=== PATIENT | female | born 1930 | race African-American/Black ===

== ENCOUNTER 2018-02-04 13:45 | Inpatient (IN) ==
[2018-02-04 14:18] LABS: Basophils % 0.4 % (0.0-0.8); Eosinophils # 0.2 10*3/uL (0.0-0.87); Eosinophils % 2.6 % (0.00-10.9); Hemoglobin 12.8 GM/DL (12.0-16.0); Immature Granulocytes % 0.4 %; Immature Granulocytes Absolute 0.03 #; Lymphocytes % 12.2 % (21.3-54.2); Mean Corpuscular Hemoglobin 29 PG (27-34); Mean Corpuscular Volume 91.7 FL (87-102); Monocytes # 0.5 10*3/uL (0.11-0.8); Monocytes % 6.1 % (1.7-12.7); Neutrophils # 6.7 10*3/uL (1.4-7.4); Neutrophils % 78.3 % (38.7-73.9); Platelet Count 147 T/CUMM (130-400); Red Blood Count 4.36 MC/CUMM (3.8-5.5); Red Cell Distribution Width 13.8 % (9.3-17.3); White Blood Count 8.5 T/CUMM (4-12)
[2018-02-04 14:27] LABS: INR 0.9
[2018-02-04 14:39] LABS: Alanine Aminotransferase 17 U/L (13-56); Albumin 3.9 G/DL (3.4-5.0); Alkaline Phosphatase 102 U/L (45-117); Aspartate Amino Transferase 18 U/L (0-37); Blood Urea Nitrogen 16 MG/DL (7-18); Calcium 9.6 MG/DL (8.5-10.1); Glucose 126 MG/DL (74-106); Potassium 3.7 MMOL/L (3.5-5.1); Sodium 143 MMOL/L (136-145); Total Protein 7.6 G/DL (6.4-8.3)
[2018-02-04 14:42] LABS: Troponin I 0.266 NG/ML (0.00-0.045)
[2018-02-04] MEDS ORDERED: ASPIRIN 325 MG TABLET PO STA (14:47)
[2018-02-04 15:54] LABS: Apearance,Urine Slightly Hazy (Clear); Bilirubin,Urine Negative (Negative); Blood, Urine Negative (Negative); Glucose,Urine (UA) Negative (Negative); Ketones,Urine 20 mg/dL (Negative); Mucus,Urine Occasional /LPF (Occasional); Nitrite,Urine Negative (Negative); Protein,Urine 100 MG/DL; RBC,Urine 1 /HPF (0-4); Squamous Epithelial Cell,Urine Occasional /HPF (0-10); Urine Color Yellow (Yellow); Urine Specific Gravity 1.012 (1.001-1.035); Urine Urobilinogen < 2.0 EU/DL (0.2-1.0); WBC,Urine 6 /HPF (0-6)
[2018-02-04] MEDS ORDERED: ENOXAPARIN 60 MG/0.6 ML SYRINGE SUBCUT ONE (16:11)
[2018-02-04] MEDS ORDERED: NITROGLYCERIN SL 0.4 MG TABLET SL PRN (16:11)
[2018-02-04] MEDS ORDERED: NITROGLYCERIN 2% OINT 1 INCH/GM PACK TOP STA (16:11)
[2018-02-04] MEDS ORDERED: ONDANSETRON 4 MG/2 ML VIAL IV PRN (16:20)
[2018-02-04] MEDS ORDERED: DEXTROSE 50% 25 GM/50 ML VIAL IV PRN (16:20)
[2018-02-04] MEDS ORDERED: GLUCAGON 1 MG VIAL IM PRN (16:20)
[2018-02-04] MEDS ORDERED: MAGNESIUM SULF RIDER 2 GM in PREMIX 1 EACH IV PRN (17:30)
[2018-02-04] MEDS: INSULIN REGULAR 100 UNIT/ML SUBCUT SCH ×2 (19:03→21:42)
[2018-02-04] MEDS: NITROGLYCERIN 2% OINT 1 INCH/GM PACK TOP SCH (19:11)
[2018-02-04] MEDS: SODIUM CHLORIDE 0.45% 1,000 ML IV SCH (19:11)
[2018-02-04] MEDS: glipiZIDE 10 MG TABLET PO SCH (21:41)
[2018-02-04] MEDS: MECLIZINE 25 MG TABLET PO SCH (21:41)
[2018-02-04] MEDS: MULTIVITAMIN (CENTRUM) TABLET PO SCH (21:41)
[2018-02-04] MEDS: LISINOPRIL 20 MG TABLET PO SCH (21:41)
[2018-02-04] MEDS: CHOLECALCIFEROL 1,000 UNIT TABLET PO SCH (21:41)
[2018-02-05] MEDS: NITROGLYCERIN 2% OINT 1 INCH/GM PACK TOP SCH ×4 (00:43→18:10)
[2018-02-05] MEDS ORDERED: ENOXAPARIN 60 MG/0.6 ML SYRINGE SUBCUT SCH (04:00)
[2018-02-05] MEDS: SODIUM CHLORIDE 0.45% 1,000 ML IV SCH ×2 (04:53→15:17)
[2018-02-05 05:21] LABS: Basophils % 0.4 % (0.0-0.8); Eosinophils # 0.1 10*3/uL (0.0-0.87); Eosinophils % 1.9 % (0.00-10.9); Hematocrit 33.4 VOL% (35.7-47.0); Hemoglobin 10.7 GM/DL (12.0-16.0); Immature Granulocytes % 0.4 %; Immature Granulocytes Absolute 0.03 #; Lymphocytes # 0.9 10*3/uL (1.4-4.0); Lymphocytes % 13.5 % (21.3-54.2); Mean Corpuscular Hemoglobin 30 PG (27-34); Mean Platelet Volume 13.7 FL (9.6-12.0); Monocytes # 0.5 10*3/uL (0.11-0.8); Monocytes % 6.9 % (1.7-12.7); Neutrophils # 5.3 10*3/uL (1.4-7.4); Neutrophils % 76.9 % (38.7-73.9); Platelet Count 120 T/CUMM (130-400); Red Blood Count 3.63 MC/CUMM (3.8-5.5); Red Cell Distribution Width 13.6 % (9.3-17.3); White Blood Count 6.8 T/CUMM (4-12)
[2018-02-05 05:54] LABS: Calcium 8.7 MG/DL (8.5-10.1); Potassium 3.5 MMOL/L (3.5-5.1); Risk Ratio 3.55; Thyroid Stimulating Hormone 2.08 uIU/ml (0.358-3.74); VLDL CHOLESTEROL 14.6 MG/DL
[2018-02-05] MEDS: POTASSIUM CHLORIDE 20 MEQ TABLET PO PRN (06:09)
[2018-02-05] MEDS ORDERED: ENOXAPARIN 40 MG/0.4 ML SYRINGE SUBCUT SCH ×2 (08:00→21:00)
[2018-02-05] MEDS ORDERED: diphenhydrAMINE CAP 25 MG CAPSULE PO PRN (08:37)
[2018-02-05] MEDS: INSULIN REGULAR 100 UNIT/ML SUBCUT SCH ×4 (09:01→21:29)
[2018-02-05] MEDS: amLODIPine 5 MG TABLET PO SCH (09:02)
[2018-02-05] MEDS: MECLIZINE 25 MG TABLET PO SCH ×2 (09:02→21:27)
[2018-02-05] MEDS: PANTOPRAZOLE 40 MG TABLET PO SCH (09:02)
[2018-02-05] MEDS: sitaGLIPtin 100 MG TABLET PO SCH (09:02)
[2018-02-05] MEDS: glipiZIDE 10 MG TABLET PO SCH ×2 (09:02→21:27)
[2018-02-05] MEDS: ASPIRIN EC 325 MG TABLET PO SCH (09:02)
[2018-02-05] MEDS ORDERED: ALBUTEROL/IPRATROPIUM 3 ML NEB RESP TX ONE (10:45)
[2018-02-05] MEDS ORDERED: cefTRIAXone 1,000 MG in SODIUM CHLORIDE 0.9% 100 ML IV SCH (11:00)
[2018-02-05] MEDS: ALBUTEROL/IPRATROPIUM 3 ML NEB RESP TX PRN (20:15)
[2018-02-05] MEDS: LISINOPRIL 20 MG TABLET PO SCH ×2 (21:26→21:31)
[2018-02-05] MEDS: CHOLECALCIFEROL 1,000 UNIT TABLET PO SCH (21:26)
[2018-02-05] MEDS: MULTIVITAMIN (CENTRUM) TABLET PO SCH (21:27)
[2018-02-05] MEDS ORDERED: FUROSEMIDE 40 MG/4 ML VIAL IV ONE (21:38)
[2018-02-06] MEDS: NITROGLYCERIN 2% OINT 1 INCH/GM PACK TOP SCH ×4 (04:34→18:28)
[2018-02-06] MEDS ORDERED: FUROSEMIDE 40 MG/4 ML VIAL IV ONE (05:39)
[2018-02-06] MEDS: SODIUM CHLORIDE 0.45% 1,000 ML IV SCH (05:42)
[2018-02-06] MEDS: ALBUTEROL/IPRATROPIUM 3 ML NEB RESP TX PRN (05:45)
[2018-02-06 07:12] LABS: Basophils % 0.1 % (0.0-0.8); Eosinophils % 0.1 % (0.00-10.9); Hematocrit 33.3 VOL% (35.7-47.0); Hemoglobin 10.7 GM/DL (12.0-16.0); Immature Granulocytes % 0.7 %; Immature Granulocytes Absolute 0.05 #; Lymphocytes # 0.7 10*3/uL (1.4-4.0); Lymphocytes % 9.2 % (21.3-54.2); Mean Corpuscular HGB Conc 32.1 GM/DL (32-36); Mean Corpuscular Hemoglobin 29 PG (27-34); Mean Corpuscular Volume 91.5 FL (87-102); Monocytes # 0.5 10*3/uL (0.11-0.8); Monocytes % 7.3 % (1.7-12.7); Neutrophils # 6.1 10*3/uL (1.4-7.4); Neutrophils % 82.6 % (38.7-73.9); Platelet Count 125 T/CUMM (130-400); Red Blood Count 3.64 MC/CUMM (3.8-5.5); Red Cell Distribution Width 13.6 % (9.3-17.3); White Blood Count 7.4 T/CUMM (4-12)
[2018-02-06] MEDS: glipiZIDE 10 MG TABLET PO SCH ×2 (08:19→21:45)
[2018-02-06] MEDS: sitaGLIPtin 100 MG TABLET PO SCH (08:19)
[2018-02-06] MEDS: INSULIN REGULAR 100 UNIT/ML SUBCUT SCH ×4 (08:19→22:19)
[2018-02-06] MEDS: MECLIZINE 25 MG TABLET PO SCH ×2 (08:19→21:46)
[2018-02-06] MEDS: amLODIPine 5 MG TABLET PO SCH (08:19)
[2018-02-06] MEDS: ASPIRIN EC 325 MG TABLET PO SCH (08:19)
[2018-02-06] MEDS: PANTOPRAZOLE 40 MG TABLET PO SCH (08:19)
[2018-02-06] MEDS ORDERED: BISACODYL 10 MG SUPP RECTAL ONE (15:43)
[2018-02-06] MEDS: ACETAMINOPHEN 325 MG TABLET PO PRN (18:30)
[2018-02-06] MEDS ORDERED: FUROSEMIDE 40 MG/4 ML VIAL IV SCH (19:00)
[2018-02-06] MEDS: LISINOPRIL 20 MG TABLET PO SCH (21:45)
[2018-02-06] MEDS: CHOLECALCIFEROL 1,000 UNIT TABLET PO SCH (21:45)
[2018-02-06] MEDS: MULTIVITAMIN (CENTRUM) TABLET PO SCH (21:45)
[2018-02-06] MEDS: FUROSEMIDE 40 MG/4 ML VIAL IV SCH (22:19)
[2018-02-07] MEDS: NITROGLYCERIN 2% OINT 1 INCH/GM PACK TOP SCH ×4 (01:44→18:03)
[2018-02-07 05:08] LABS: Basophils % 0.1 % (0.0-0.8); Eosinophils % 0.3 % (0.00-10.9); Hematocrit 30.2 VOL% (35.7-47.0); Hemoglobin 9.6 GM/DL (12.0-16.0); Immature Granulocytes % 0.7 %; Immature Granulocytes Absolute 0.05 #; Lymphocytes # 0.6 10*3/uL (1.4-4.0); Lymphocytes % 8.2 % (21.3-54.2); Mean Corpuscular HGB Conc 31.8 GM/DL (32-36); Mean Corpuscular Hemoglobin 29 PG (27-34); Mean Corpuscular Volume 90.4 FL (87-102); Mean Platelet Volume 13.1 FL (9.6-12.0); Monocytes # 0.7 10*3/uL (0.11-0.8); Monocytes % 9.3 % (1.7-12.7); Neutrophils # 6.1 10*3/uL (1.4-7.4); Neutrophils % 81.4 % (38.7-73.9); Platelet Count 124 T/CUMM (130-400); Red Blood Count 3.34 MC/CUMM (3.8-5.5); Red Cell Distribution Width 13.5 % (9.3-17.3); White Blood Count 7.4 T/CUMM (4-12)
[2018-02-07 05:34] LABS: Calcium 8.5 MG/DL (8.5-10.1); Osmolality,Calculated 270.8 MOS/KG (273-304); Potassium 3.5 MMOL/L (3.5-5.1)
[2018-02-07] MEDS: sitaGLIPtin 100 MG TABLET PO SCH (09:11)
[2018-02-07] MEDS: MECLIZINE 25 MG TABLET PO SCH ×2 (09:11→20:57)
[2018-02-07] MEDS: glipiZIDE 10 MG TABLET PO SCH ×2 (09:11→20:56)
[2018-02-07] MEDS: ASPIRIN EC 325 MG TABLET PO SCH (09:11)
[2018-02-07] MEDS: PANTOPRAZOLE 40 MG TABLET PO SCH (09:11)
[2018-02-07] MEDS: FUROSEMIDE 40 MG/4 ML VIAL IV SCH ×2 (09:12→16:41)
[2018-02-07] MEDS: INSULIN REGULAR 100 UNIT/ML SUBCUT SCH ×4 (09:12→23:49)
[2018-02-07] MEDS: POLYETHYLENE GLYCOL POWDER 17 GM PACK PO SCH (09:12)
[2018-02-07] MEDS: amLODIPine 5 MG TABLET PO SCH (09:12)
[2018-02-07] MEDS: ALBUTEROL/IPRATROPIUM 3 ML NEB RESP TX PRN (14:00)
[2018-02-07] MEDS: ACETAMINOPHEN 325 MG TABLET PO PRN (16:40)
[2018-02-07] MEDS: cefTRIAXone 1,000 MG in SYRINGE 1 EACH IV SCH (18:35)
[2018-02-07] MEDS ORDERED: AZITHROMYCIN INJ 500 MG in SODIUM CHLORIDE 0.9% 250 ML IV SCH (20:00)
[2018-02-07] MEDS: MULTIVITAMIN (CENTRUM) TABLET PO SCH (20:55)
[2018-02-07] MEDS: LISINOPRIL 20 MG TABLET PO SCH (20:56)
[2018-02-07] MEDS: CHOLECALCIFEROL 1,000 UNIT TABLET PO SCH (20:57)
[2018-02-08] MEDS: NITROGLYCERIN 2% OINT 1 INCH/GM PACK TOP SCH ×4 (01:16→17:13)
[2018-02-08 05:22] LABS: Calcium 8.7 MG/DL (8.5-10.1); Osmolality,Calculated 283.8 MOS/KG (273-304); Potassium 3.8 MMOL/L (3.5-5.1)
[2018-02-08 05:33] LABS: Basophils % 0.1 % (0.0-0.8); Eosinophils % 0.1 % (0.00-10.9); Hematocrit 29.7 VOL% (35.7-47.0); Hemoglobin 9.8 GM/DL (12.0-16.0); Immature Granulocytes % 0.8 %; Immature Granulocytes Absolute 0.07 #; Lymphocytes # 0.6 10*3/uL (1.4-4.0); Lymphocytes % 6.9 % (21.3-54.2); Mean Corpuscular Hemoglobin 30 PG (27-34); Mean Platelet Volume 13.3 FL (9.6-12.0); Monocytes # 0.6 10*3/uL (0.11-0.8); Monocytes % 6.5 % (1.7-12.7); Neutrophils # 7.7 10*3/uL (1.4-7.4); Neutrophils % 85.6 % (38.7-73.9); Platelet Count 145 T/CUMM (130-400); Red Cell Distribution Width 13.6 % (9.3-17.3)
[2018-02-08] MEDS: ASPIRIN EC 325 MG TABLET PO SCH (09:14)
[2018-02-08] MEDS: PANTOPRAZOLE 40 MG TABLET PO SCH (09:14)
[2018-02-08] MEDS: FUROSEMIDE 40 MG/4 ML VIAL IV SCH ×2 (09:14→17:12)
[2018-02-08] MEDS: sitaGLIPtin 100 MG TABLET PO SCH (09:14)
[2018-02-08] MEDS: MECLIZINE 25 MG TABLET PO SCH ×2 (09:14→22:07)
[2018-02-08] MEDS: amLODIPine 5 MG TABLET PO SCH (09:14)
[2018-02-08] MEDS: glipiZIDE 10 MG TABLET PO SCH ×2 (09:14→22:07)
[2018-02-08] MEDS: INSULIN REGULAR 100 UNIT/ML SUBCUT SCH ×4 (09:18→22:08)
[2018-02-08] MEDS: ACETAMINOPHEN 325 MG TABLET PO PRN (09:22)
[2018-02-08] MEDS: POLYETHYLENE GLYCOL POWDER 17 GM PACK PO SCH (09:23)
[2018-02-08] MEDS: cefTRIAXone 1,000 MG in SYRINGE 1 EACH IV SCH (17:12)
[2018-02-08] MEDS: DOXYCYCLINE HYCLATE 100 MG CAPSULE PO SCH (22:07)
[2018-02-08] MEDS: CHOLECALCIFEROL 1,000 UNIT TABLET PO SCH (22:07)
[2018-02-08] MEDS: MULTIVITAMIN (CENTRUM) TABLET PO SCH (22:07)
[2018-02-08] MEDS: LISINOPRIL 20 MG TABLET PO SCH (22:08)
[2018-02-09 06:09] LABS: Basophils % 0.3 % (0.0-0.8); Eosinophils # 0.1 10*3/uL (0.0-0.87); Hematocrit 34.9 VOL% (35.7-47.0); Hemoglobin 10.4 GM/DL (12.0-16.0); Immature Granulocytes % 0.5 %; Immature Granulocytes Absolute 0.04 #; Lymphocytes # 0.7 10*3/uL (1.4-4.0); Lymphocytes % 8.6 % (21.3-54.2); Mean Corpuscular HGB Conc 29.8 GM/DL (32-36); Mean Corpuscular Hemoglobin 28 PG (27-34); Mean Corpuscular Volume 95.1 FL (87-102); Mean Platelet Volume 13.3 FL (9.6-12.0); Monocytes # 0.5 10*3/uL (0.11-0.8); Monocytes % 6.8 % (1.7-12.7); Neutrophils # 6.3 10*3/uL (1.4-7.4); Neutrophils % 82.8 % (38.7-73.9); Red Blood Count 3.67 MC/CUMM (3.8-5.5); Red Cell Distribution Width 13.9 % (9.3-17.3); White Blood Count 7.7 T/CUMM (4-12)
[2018-02-09 06:11] LABS: Platelet Count 140 T/CUMM (130-400)
[2018-02-09] MEDS: NITROGLYCERIN 2% OINT 1 INCH/GM PACK TOP SCH ×4 (06:23→18:21)
[2018-02-09 06:38] LABS: Calcium 9.2 MG/DL (8.5-10.1); Potassium 3.9 MMOL/L (3.5-5.1)
[2018-02-09 07:10] LABS: Anisocytosis 1+; Macrocytosis Slight; Platelet Estimate Adequate
[2018-02-09] MEDS: ALBUTEROL/IPRATROPIUM 3 ML NEB RESP TX PRN ×2 (08:07→18:40)
[2018-02-09] MEDS: INSULIN REGULAR 100 UNIT/ML SUBCUT SCH ×4 (09:32→21:48)
[2018-02-09] MEDS: amLODIPine 5 MG TABLET PO SCH (09:33)
[2018-02-09] MEDS: DOXYCYCLINE HYCLATE 100 MG CAPSULE PO SCH ×2 (09:33→21:45)
[2018-02-09] MEDS: PANTOPRAZOLE 40 MG TABLET PO SCH (09:33)
[2018-02-09] MEDS: MECLIZINE 25 MG TABLET PO SCH ×2 (09:33→21:45)
[2018-02-09] MEDS: sitaGLIPtin 100 MG TABLET PO SCH (09:33)
[2018-02-09] MEDS: glipiZIDE 10 MG TABLET PO SCH ×2 (09:33→21:45)
[2018-02-09] MEDS: ASPIRIN EC 325 MG TABLET PO SCH (09:33)
[2018-02-09] MEDS: FUROSEMIDE 40 MG/4 ML VIAL IV SCH (09:33)
[2018-02-09] MEDS: cefTRIAXone 1,000 MG in SYRINGE 1 EACH IV SCH (18:16)
[2018-02-09] MEDS: LISINOPRIL 20 MG TABLET PO SCH (21:45)
[2018-02-09] MEDS: MULTIVITAMIN (CENTRUM) TABLET PO SCH (21:45)
[2018-02-09] MEDS: CHOLECALCIFEROL 1,000 UNIT TABLET PO SCH (21:45)
[2018-02-10] MEDS: NITROGLYCERIN 2% OINT 1 INCH/GM PACK TOP SCH ×5 (01:22→23:48)
[2018-02-10] MEDS: INSULIN REGULAR 100 UNIT/ML SUBCUT SCH ×4 (08:44→21:22)
[2018-02-10] MEDS ORDERED: FUROSEMIDE 40 MG/4 ML VIAL IV SCH (09:00)
[2018-02-10] MEDS: MECLIZINE 25 MG TABLET PO SCH ×2 (09:46→21:21)
[2018-02-10] MEDS: PANTOPRAZOLE 40 MG TABLET PO SCH (09:46)
[2018-02-10] MEDS: amLODIPine 5 MG TABLET PO SCH (09:46)
[2018-02-10] MEDS: ASPIRIN EC 325 MG TABLET PO SCH (09:46)
[2018-02-10] MEDS: glipiZIDE 10 MG TABLET PO SCH ×2 (09:47→21:21)
[2018-02-10] MEDS: DOXYCYCLINE HYCLATE 100 MG CAPSULE PO SCH ×2 (09:47→21:21)
[2018-02-10] MEDS: sitaGLIPtin 100 MG TABLET PO SCH (09:47)
[2018-02-10] MEDS: POTASSIUM CHLORIDE 20 MEQ TABLET PO PRN (09:48)
[2018-02-10] MEDS: ALBUTEROL/IPRATROPIUM 3 ML NEB RESP TX PRN (15:26)
[2018-02-10] MEDS: cefTRIAXone 1,000 MG in SYRINGE 1 EACH IV SCH (18:38)
[2018-02-10] MEDS: CHOLECALCIFEROL 1,000 UNIT TABLET PO SCH (21:22)
[2018-02-10] MEDS: MULTIVITAMIN (CENTRUM) TABLET PO SCH (21:22)
[2018-02-10] MEDS: LISINOPRIL 20 MG TABLET PO SCH (21:23)
[2018-02-11] MEDS: ALBUTEROL/IPRATROPIUM 3 ML NEB RESP TX PRN (03:18)
[2018-02-11 05:54] LABS: Calcium 8.5 MG/DL (8.5-10.1); Osmolality,Calculated 281.1 MOS/KG (273-304); Potassium 4.6 MMOL/L (3.5-5.1)
[2018-02-11] MEDS: NITROGLYCERIN 2% OINT 1 INCH/GM PACK TOP SCH ×4 (06:50→17:10)
[2018-02-11] MEDS ORDERED: MORPHINE 4 MG/1 ML VIAL IV ONE (07:28)
[2018-02-11] MEDS: ASPIRIN EC 325 MG TABLET PO SCH ×2 (07:44→09:46)
[2018-02-11] MEDS ORDERED: LORazepam 2 MG/1 ML VIAL IM ONE (08:09)
[2018-02-11] MEDS ORDERED: LORazepam 2 MG/1 ML VIAL ONE (08:12)
[2018-02-11] MEDS: INSULIN REGULAR 100 UNIT/ML SUBCUT SCH ×5 (08:45→21:23)
[2018-02-11] MEDS ORDERED: PROPOFOL 1,000 MG/100 ML BOTTLE IV ONE (08:47)
[2018-02-11] MEDS ORDERED: EPINEPHrine 1 MG/10 ML SYRINGE ONE (08:58)
[2018-02-11] MEDS ORDERED: FUROSEMIDE 40 MG TABLET PO SCH (09:00)
[2018-02-11] MEDS: PROPOFOL 1,000 MG/100 ML BOTTLE IV SCH ×3 (09:12→20:34)
[2018-02-11 09:25] LABS: ABG Base Excess -10.5 MMOL/L (-2.5-2.5); ABG Oxygen Saturation 99.1 % (95-100); ABG PCO2 32.9 MM HG (35-48); ABG PH 7.277 (7.35-7.45); ABG TCO2 14.3 MMOL/L (23-27); Allen Test Positive
[2018-02-11] MEDS: glipiZIDE 10 MG TABLET PO SCH ×3 (09:46→21:23)
[2018-02-11] MEDS: MECLIZINE 25 MG TABLET PO SCH (09:46)
[2018-02-11] MEDS: sitaGLIPtin 100 MG TABLET PO SCH (09:46)
[2018-02-11] MEDS: DOXYCYCLINE HYCLATE 100 MG CAPSULE PO SCH (09:48)
[2018-02-11] MEDS: methylPREDNISolone SOD SUC 125 MG/2 ML VIAL IV SCH ×3 (09:48→21:22)
[2018-02-11] MEDS: PANTOPRAZOLE 40 MG TABLET PO SCH (09:48)
[2018-02-11] MEDS: amLODIPine 5 MG TABLET PO SCH (09:48)
[2018-02-11] MEDS ORDERED: ALBUTEROL 2.5 MG/3 ML NEB RESP TX PRN (09:52)
[2018-02-11] MEDS ORDERED: PROPOFOL 1,000 MG/100 ML BOTTLE IV SCH (10:00)
[2018-02-11 10:06] LABS: INR 1.1; PT Patient Result 12.2 SECS
[2018-02-11 10:18] LABS: Basophils % 0.2 % (0.0-0.8); Eosinophils # 0.1 10*3/uL (0.0-0.87); Eosinophils % 0.6 % (0.00-10.9); Hematocrit 27.5 VOL% (35.7-47.0); Hemoglobin 8.8 GM/DL (12.0-16.0); Immature Granulocytes % 1.3 %; Immature Granulocytes Absolute 0.18 #; Lymphocytes # 0.6 10*3/uL (1.4-4.0); Lymphocytes % 4.4 % (21.3-54.2); Mean Corpuscular Hemoglobin 30 PG (27-34); Mean Corpuscular Volume 92.3 FL (87-102); Monocytes # 0.6 10*3/uL (0.11-0.8); Monocytes % 4.4 % (1.7-12.7); Neutrophils # 11.9 10*3/uL (1.4-7.4); Neutrophils % 89.1 % (38.7-73.9); Platelet Count 220 T/CUMM (130-400); Red Blood Count 2.98 MC/CUMM (3.8-5.5); Red Cell Distribution Width 14.1 % (9.3-17.3); White Blood Count 13.4 T/CUMM (4-12)
[2018-02-11 10:37] LABS: Alanine Aminotransferase 406 U/L (13-56); Albumin 2.7 G/DL (3.4-5.0); Alkaline Phosphatase 132 U/L (45-117); Aspartate Amino Transferase 660 U/L (0-37); Blood Urea Nitrogen 43 MG/DL (7-18); Calcium 8.6 MG/DL (8.5-10.1); Glucose 296 MG/DL (74-106); Osmolality,Calculated 289.2 MOS/KG (273-304); Potassium 4.6 MMOL/L (3.5-5.1); Sodium 134 MMOL/L (136-145); Total Protein 5.7 G/DL (6.4-8.3)
[2018-02-11] MEDS: PANTOPRAZOLE 40 MG VIAL IV SCH (10:52)
[2018-02-11] MEDS: MEROPENEM 500 MG in SODIUM CHLORIDE 0.9% 100 ML IV SCH (10:52)
[2018-02-11 10:57] LABS: Lactic Acid 3.6 MMOL/L (0.4-2.0)
[2018-02-11] MEDS ORDERED: SODIUM BICARBONATE 50 MEQ/50 ML SYRINGE IV ONE (11:03)
[2018-02-11] MEDS ORDERED: SODIUM CHLORIDE 0.9% 2,100 ML IV ONE (11:08)
[2018-02-11] MEDS ORDERED: SODIUM BICARB INJ 150 MEQ in DEXTROSE 5% 850 ML IV SCH (11:30)
[2018-02-11] MEDS: ALBUTEROL/IPRATROPIUM 3 ML NEB RESP TX SCH ×2 (12:22→19:33)
[2018-02-11] MEDS: PIPERACILLIN/TAZOBACTAM 3,375 MG in SODIUM CHLORIDE 0.9% 100 ML IV SCH (14:40)
[2018-02-11 15:05] LABS: Band Neutrophils 1 % (0-10); Lymphocytes 5 % (20-55); Macrocytosis Slight; Segmented Neutrophils 91 % (50-85); Total Cells Counted 100
[2018-02-11 15:06] LABS: Hypochromasia Slight; Platelet Estimate Adequate
[2018-02-11] MEDS: INSULIN GLARGINE 100 UNIT/ML SUBCUT SCH (17:19)
[2018-02-11] MEDS: SODIUM BICARB INJ 150 MEQ in STERILE WATER INJ 850 ML IV SCH (18:37)
[2018-02-11] MEDS: CHOLECALCIFEROL 1,000 UNIT TABLET PO SCH (21:23)
[2018-02-11] MEDS: MULTIVITAMIN (CENTRUM) TABLET PO SCH (21:23)
[2018-02-12] MEDS: INSULIN REGULAR 100 UNIT/ML SUBCUT SCH ×7 (00:23→23:16)
[2018-02-12] MEDS: MEROPENEM 500 MG in SODIUM CHLORIDE 0.9% 100 ML IV SCH ×3 (00:23→22:42)
[2018-02-12] MEDS: NITROGLYCERIN 2% OINT 1 INCH/GM PACK TOP SCH ×5 (00:24→23:16)
[2018-02-12] MEDS: ALBUTEROL/IPRATROPIUM 3 ML NEB RESP TX SCH ×4 (02:04→19:25)
[2018-02-12] MEDS: PIPERACILLIN/TAZOBACTAM 3,375 MG in SODIUM CHLORIDE 0.9% 100 ML IV SCH ×2 (02:21→14:24)
[2018-02-12] MEDS: methylPREDNISolone SOD SUC 125 MG/2 ML VIAL IV SCH ×4 (04:25→21:05)
[2018-02-12] MEDS: SODIUM BICARB INJ 150 MEQ in STERILE WATER INJ 850 ML IV SCH (04:26)
[2018-02-12 04:36] LABS: Allen Test Positive; Pt O2 Delivery Device Ventilator
[2018-02-12 04:37] LABS: ABG HCO3 24.7 MMOL/L (20-26); ABG Oxygen Saturation 98.7 % (95-100); ABG PCO2 23.9 MM HG (35-48); ABG PO2 223.8 MM HG (80-95); ABG TCO2 25.4 MMOL/L (23-27)
[2018-02-12 04:39] LABS: ABG PH 7.632 (7.35-7.45)
[2018-02-12 04:39] LABS: Hemoglobin 7.9 GM/DL (12.0-16.0); Immature Granulocytes % 0.5 %; Immature Granulocytes Absolute 0.05 #; Lymphocytes # 0.3 10*3/uL (1.4-4.0); Lymphocytes % 3.4 % (21.3-54.2); Mean Corpuscular HGB Conc 32.9 GM/DL (32-36); Mean Corpuscular Hemoglobin 29 PG (27-34); Mean Corpuscular Volume 88.6 FL (87-102); Mean Platelet Volume 11.9 FL (9.6-12.0); Monocytes # 0.4 10*3/uL (0.11-0.8); Monocytes % 3.9 % (1.7-12.7); Neutrophils % 92.2 % (38.7-73.9); Platelet Count 193 T/CUMM (130-400); Red Blood Count 2.71 MC/CUMM (3.8-5.5); Red Cell Distribution Width 13.7 % (9.3-17.3); White Blood Count 9.8 T/CUMM (4-12)
[2018-02-12] MEDS: PROPOFOL 1,000 MG/100 ML BOTTLE IV SCH ×3 (05:13→16:56)
[2018-02-12 05:43] LABS: Albumin 2.2 G/DL (3.4-5.0); Bilirubin,Total 0.4 MG/DL (0.2-1.0); Calcium 8.2 MG/DL (8.5-10.1); Osmolality,Calculated 283.7 MOS/KG (273-304); Potassium 3.6 MMOL/L (3.5-5.1); Total Protein 5.2 G/DL (6.4-8.3)
[2018-02-12 06:49] LABS: Anisocytosis 1+; Band Neutrophils 5 % (0-10); Hypochromasia 1+; Lymphocytes 1 % (20-55); Segmented Neutrophils 92 % (50-85); Total Cells Counted 100
[2018-02-12 06:50] LABS: Acanthocytes Few; Platelet Estimate Adequate; Target Cells Few
[2018-02-12] MEDS ORDERED: FUROSEMIDE 40 MG/4 ML VIAL IV ONE (06:53)
[2018-02-12] MEDS ORDERED: DEXTROSE 50% 25 GM/50 ML SYRINGE IV ONE (07:58)
[2018-02-12] MEDS: ASPIRIN EC 325 MG TABLET PO SCH (08:02)
[2018-02-12] MEDS: amLODIPine 5 MG TABLET PO SCH (08:02)
[2018-02-12] MEDS: glipiZIDE 10 MG TABLET PO SCH ×2 (08:03→21:05)
[2018-02-12] MEDS: INSULIN GLARGINE 100 UNIT/ML SUBCUT SCH (08:03)
[2018-02-12] MEDS ORDERED: INSULIN GLARGINE 100 UNIT/ML SUBCUT SCH (09:00)
[2018-02-12] MEDS: PANTOPRAZOLE 40 MG VIAL IV SCH (10:15)
[2018-02-12] MEDS: MULTIVITAMIN (CENTRUM) TABLET PO SCH (21:05)
[2018-02-12] MEDS: CHOLECALCIFEROL 1,000 UNIT TABLET PO SCH (21:07)
[2018-02-13] MEDS: ALBUTEROL/IPRATROPIUM 3 ML NEB RESP TX SCH ×4 (00:06→19:33)
[2018-02-13] MEDS: PROPOFOL 1,000 MG/100 ML BOTTLE IV SCH ×4 (00:09→17:47)
[2018-02-13] MEDS: PIPERACILLIN/TAZOBACTAM 3,375 MG in SODIUM CHLORIDE 0.9% 100 ML IV SCH ×2 (02:34→13:50)
[2018-02-13] MEDS: methylPREDNISolone SOD SUC 125 MG/2 ML VIAL IV SCH ×4 (03:57→21:08)
[2018-02-13] MEDS: INSULIN REGULAR 100 UNIT/ML SUBCUT SCH ×5 (03:58→21:07)
[2018-02-13 04:30] LABS: ABG Base Excess 3.3 MMOL/L (-2.5-2.5); ABG HCO3 27.4 MMOL/L (20-26); ABG Oxygen Saturation 98.8 % (95-100); ABG PCO2 32.8 MM HG (35-48); ABG PH 7.508 (7.35-7.45); ABG TCO2 23.1 MMOL/L (23-27); Allen Test Positive; Pt O2 Delivery Device Ventilator
[2018-02-13] MEDS: NITROGLYCERIN 2% OINT 1 INCH/GM PACK TOP SCH ×3 (05:28→17:34)
[2018-02-13 05:38] LABS: Basophils % 0.1 % (0.0-0.8); Hematocrit 23.8 VOL% (35.7-47.0); Hemoglobin 7.8 GM/DL (12.0-16.0); Immature Granulocytes % 0.5 %; Immature Granulocytes Absolute 0.06 #; Lymphocytes # 0.3 10*3/uL (1.4-4.0); Lymphocytes % 2.8 % (21.3-54.2); Mean Corpuscular HGB Conc 32.8 GM/DL (32-36); Mean Corpuscular Hemoglobin 30 PG (27-34); Mean Corpuscular Volume 90.2 FL (87-102); Mean Platelet Volume 12.1 FL (9.6-12.0); Monocytes # 0.6 10*3/uL (0.11-0.8); NRBC # 0.02 10*3/uL; Neutrophils # 10.9 10*3/uL (1.4-7.4); Neutrophils % 91.6 % (38.7-73.9); Platelet Count 197 T/CUMM (130-400); Red Blood Count 2.64 MC/CUMM (3.8-5.5); Red Cell Distribution Width 14.1 % (9.3-17.3); White Blood Count 11.9 T/CUMM (4-12)
[2018-02-13 06:06] LABS: Hypochromasia 1+; Lymphocytes 4 % (20-55); Nucleated Red Blood Cells 1 (0-5); Polychromasia Slight; Segmented Neutrophils 93 % (50-85); Total Cells Counted 100
[2018-02-13 06:07] LABS: Microcytosis Slight
[2018-02-13 06:16] LABS: Calcium 7.9 MG/DL (8.5-10.1); Potassium 3.9 MMOL/L (3.5-5.1); Prealbumin 16.7 MG/DL (20-40)
[2018-02-13 06:35] LABS: Albumin 2.3 G/DL (3.4-5.0); Bilirubin,Total 0.9 MG/DL (0.2-1.0); Calcium 8.2 MG/DL (8.5-10.1); Potassium 3.9 MMOL/L (3.5-5.1); Total Protein 5.2 G/DL (6.4-8.3)
[2018-02-13] MEDS ORDERED: FUROSEMIDE 40 MG/4 ML VIAL IV ONE (06:49)
[2018-02-13] MEDS: amLODIPine 5 MG TABLET PO SCH (08:36)
[2018-02-13] MEDS: glipiZIDE 10 MG TABLET PO SCH ×2 (09:02→21:08)
[2018-02-13] MEDS: ASPIRIN 325 MG TABLET PO SCH (09:02)
[2018-02-13] MEDS: INSULIN GLARGINE 100 UNIT/ML SUBCUT SCH (09:03)
[2018-02-13] MEDS: PANTOPRAZOLE 40 MG VIAL IV SCH (09:11)
[2018-02-13] MEDS: MEROPENEM 500 MG in SODIUM CHLORIDE 0.9% 100 ML IV SCH ×2 (11:00→22:50)
[2018-02-13] MEDS: MULTIVITAMIN LIQUID (CENTRUM) 60 ML BOTTLE PO SCH (21:08)
[2018-02-13] MEDS: CHOLECALCIFEROL 1,000 UNIT TABLET PO SCH (21:08)
[2018-02-14] MEDS: ALBUTEROL/IPRATROPIUM 3 ML NEB RESP TX SCH ×4 (00:40→20:32)
[2018-02-14] MEDS: NITROGLYCERIN 2% OINT 1 INCH/GM PACK TOP SCH ×4 (00:47→17:03)
[2018-02-14] MEDS: INSULIN REGULAR 100 UNIT/ML SUBCUT SCH ×6 (00:47→20:23)
[2018-02-14] MEDS: PIPERACILLIN/TAZOBACTAM 3,375 MG in SODIUM CHLORIDE 0.9% 100 ML IV SCH ×2 (01:02→14:41)
[2018-02-14] MEDS: methylPREDNISolone SOD SUC 125 MG/2 ML VIAL IV SCH ×4 (03:39→20:26)
[2018-02-14] MEDS: PROPOFOL 1,000 MG/100 ML BOTTLE IV SCH ×3 (03:39→17:33)
[2018-02-14 03:47] LABS: ABG Base Excess 2.6 MMOL/L (-2.5-2.5); ABG HCO3 26.7 MMOL/L (20-26); ABG Oxygen Saturation 97.7 % (95-100); ABG PCO2 34.4 MM HG (35-48); ABG PH 7.484 (7.35-7.45); ABG TCO2 23.7 MMOL/L (23-27); Allen Test Positive; Pt O2 Delivery Device Ventilator
[2018-02-14 04:15] LABS: Basophils % 0.1 % (0.0-0.8); Hematocrit 26.5 VOL% (35.7-47.0); Hemoglobin 8.6 GM/DL (12.0-16.0); Immature Granulocytes % 1.6 %; Immature Granulocytes Absolute 0.19 #; Lymphocytes # 0.4 10*3/uL (1.4-4.0); Lymphocytes % 3.2 % (21.3-54.2); Mean Corpuscular HGB Conc 32.5 GM/DL (32-36); Mean Corpuscular Hemoglobin 29 PG (27-34); Mean Corpuscular Volume 89.8 FL (87-102); Mean Platelet Volume 11.8 FL (9.6-12.0); Monocytes # 0.7 10*3/uL (0.11-0.8); Monocytes % 5.9 % (1.7-12.7); NRBC # 0.02 10*3/uL; Neutrophils # 10.9 10*3/uL (1.4-7.4); Neutrophils % 89.2 % (38.7-73.9); Platelet Count 199 T/CUMM (130-400); Red Blood Count 2.95 MC/CUMM (3.8-5.5); Red Cell Distribution Width 14.2 % (9.3-17.3); White Blood Count 12.2 T/CUMM (4-12)
[2018-02-14 05:08] LABS: Alanine Aminotransferase 175 U/L (13-56); Albumin 2.4 G/DL (3.4-5.0); Alkaline Phosphatase 120 U/L (45-117); Aspartate Amino Transferase 31 U/L (0-37); Bilirubin,Total < 0.39 MG/DL (0.2-1.0); Blood Urea Nitrogen 66 MG/DL (7-18); Calcium 7.9 MG/DL (8.5-10.1); Glucose 95 MG/DL (74-106); Osmolality,Calculated 286.2 MOS/KG (273-304); Sodium 134 MMOL/L (136-145); Total Protein 5.4 G/DL (6.4-8.3)
[2018-02-14 05:24] LABS: Hypochromasia 1+; Lymphocytes 3 % (20-55); Microcytosis Slight; Nucleated Red Blood Cells 1 (0-5); Platelet Estimate Adequate; Segmented Neutrophils 95 % (50-85); Total Cells Counted 100
[2018-02-14] MEDS ORDERED: POTASSIUM CHLORIDE 20 MEQ/15 ML UDCUP PO PRN (08:30)
[2018-02-14] MEDS: INSULIN GLARGINE 100 UNIT/ML SUBCUT SCH (08:34)
[2018-02-14] MEDS: ASPIRIN 325 MG TABLET PO SCH (08:35)
[2018-02-14] MEDS: glipiZIDE 10 MG TABLET PO SCH (08:35)
[2018-02-14] MEDS: PANTOPRAZOLE 40 MG VIAL IV SCH (09:01)
[2018-02-14] MEDS: LEVOFLOXACIN INJ 750 MG in PREMIX 1 EACH IV SCH (11:50)
[2018-02-14] MEDS: CHOLECALCIFEROL 1,000 UNIT TABLET PO SCH (20:23)
[2018-02-14] MEDS: MULTIVITAMIN LIQUID (CENTRUM) 60 ML BOTTLE PO SCH (20:23)
[2018-02-15] MEDS: INSULIN REGULAR 100 UNIT/ML SUBCUT SCH ×6 (00:35→21:04)
[2018-02-15] MEDS: NITROGLYCERIN 2% OINT 1 INCH/GM PACK TOP SCH ×4 (00:35→17:58)
[2018-02-15] MEDS: PROPOFOL 1,000 MG/100 ML BOTTLE IV SCH ×4 (00:36→17:54)
[2018-02-15] MEDS: ALBUTEROL/IPRATROPIUM 3 ML NEB RESP TX SCH ×4 (01:10→20:10)
[2018-02-15] MEDS: PIPERACILLIN/TAZOBACTAM 3,375 MG in SODIUM CHLORIDE 0.9% 100 ML IV SCH ×2 (01:22→13:37)
[2018-02-15] MEDS: methylPREDNISolone SOD SUC 125 MG/2 ML VIAL IV SCH ×4 (02:27→21:03)
[2018-02-15 03:14] LABS: Basophils % 0.1 % (0.0-0.8); Hematocrit 26.5 VOL% (35.7-47.0); Hemoglobin 8.6 GM/DL (12.0-16.0); Immature Granulocytes % 1.8 %; Immature Granulocytes Absolute 0.19 #; Lymphocytes # 0.4 10*3/uL (1.4-4.0); Lymphocytes % 3.5 % (21.3-54.2); Mean Corpuscular HGB Conc 32.5 GM/DL (32-36); Mean Corpuscular Hemoglobin 29 PG (27-34); Mean Corpuscular Volume 89.5 FL (87-102); Mean Platelet Volume 11.6 FL (9.6-12.0); Monocytes # 0.8 10*3/uL (0.11-0.8); Monocytes % 7.1 % (1.7-12.7); NRBC # 0.04 10*3/uL; Neutrophils # 9.4 10*3/uL (1.4-7.4); Neutrophils % 87.5 % (38.7-73.9); Platelet Count 197 T/CUMM (130-400); Red Blood Count 2.96 MC/CUMM (3.8-5.5); Red Cell Distribution Width 13.9 % (9.3-17.3); White Blood Count 10.8 T/CUMM (4-12)
[2018-02-15 03:25] LABS: Alanine Aminotransferase 125 U/L (13-56); Albumin 2.2 G/DL (3.4-5.0); Alkaline Phosphatase 114 U/L (45-117); Aspartate Amino Transferase 13 U/L (0-37); Bilirubin,Total < 0.39 MG/DL (0.2-1.0); Blood Urea Nitrogen 73 MG/DL (7-18); Calcium 7.7 MG/DL (8.5-10.1); Glucose 142 MG/DL (74-106); Osmolality,Calculated 291.2 MOS/KG (273-304); Potassium 3.9 MMOL/L (3.5-5.1); Sodium 134 MMOL/L (136-145); Total Protein 5.1 G/DL (6.4-8.3)
[2018-02-15 03:33] LABS: ABG Base Excess 1.6 MMOL/L (-2.5-2.5); ABG HCO3 25.9 MMOL/L (20-26); ABG Oxygen Saturation 98.1 % (95-100); ABG PCO2 35.7 MM HG (35-48); ABG PH 7.459 (7.35-7.45); ABG TCO2 23.2 MMOL/L (23-27); Allen Test Positive; Pt O2 Delivery Device Ventilator
[2018-02-15 05:21] LABS: Platelet Estimate Adequate; Polychromasia Few
[2018-02-15] MEDS: INSULIN GLARGINE 100 UNIT/ML SUBCUT SCH (09:23)
[2018-02-15] MEDS: ASPIRIN 325 MG TABLET PO SCH (09:24)
[2018-02-15] MEDS: PANTOPRAZOLE 40 MG VIAL IV SCH (09:24)
[2018-02-15] MEDS: CARVEDILOL 3.125 MG TABLET PO SCH ×2 (09:24→21:03)
[2018-02-15] MEDS: CHOLECALCIFEROL 1,000 UNIT TABLET PO SCH (21:04)
[2018-02-15] MEDS: MULTIVITAMIN LIQUID (CENTRUM) 60 ML BOTTLE PO SCH (21:05)
[2018-02-16] MEDS: NITROGLYCERIN 2% OINT 1 INCH/GM PACK TOP SCH ×4 (00:02→18:01)
[2018-02-16] MEDS: INSULIN REGULAR 100 UNIT/ML SUBCUT SCH ×6 (00:02→20:35)
[2018-02-16] MEDS: ALBUTEROL/IPRATROPIUM 3 ML NEB RESP TX SCH ×4 (01:00→19:28)
[2018-02-16] MEDS: PIPERACILLIN/TAZOBACTAM 3,375 MG in SODIUM CHLORIDE 0.9% 100 ML IV SCH ×2 (02:05→15:19)
[2018-02-16] MEDS: methylPREDNISolone SOD SUC 125 MG/2 ML VIAL IV SCH (02:06)
[2018-02-16 03:38] LABS: Basophils % 0.1 % (0.0-0.8); Hematocrit 29.3 VOL% (35.7-47.0); Hemoglobin 9.4 GM/DL (12.0-16.0); Immature Granulocytes % 1.9 %; Immature Granulocytes Absolute 0.23 #; Lymphocytes # 0.4 10*3/uL (1.4-4.0); Lymphocytes % 3.5 % (21.3-54.2); Mean Corpuscular HGB Conc 32.1 GM/DL (32-36); Mean Corpuscular Hemoglobin 29 PG (27-34); Mean Corpuscular Volume 89.6 FL (87-102); Mean Platelet Volume 11.5 FL (9.6-12.0); Monocytes # 0.6 10*3/uL (0.11-0.8); Monocytes % 5.3 % (1.7-12.7); NRBC # 0.05 10*3/uL; Neutrophils # 10.6 10*3/uL (1.4-7.4); Neutrophils % 89.2 % (38.7-73.9); Platelet Count 216 T/CUMM (130-400); Red Blood Count 3.27 MC/CUMM (3.8-5.5); Red Cell Distribution Width 13.7 % (9.3-17.3); White Blood Count 11.9 T/CUMM (4-12)
[2018-02-16 03:57] LABS: Albumin 2.2 G/DL (3.4-5.0); Bilirubin,Total 0.4 MG/DL (0.2-1.0); Calcium 8.1 MG/DL (8.5-10.1); Potassium 4.1 MMOL/L (3.5-5.1); Total Protein 5.2 G/DL (6.4-8.3)
[2018-02-16 04:26] LABS: ABG Base Excess 2.1 MMOL/L (-2.5-2.5); ABG HCO3 26.2 MMOL/L (20-26); ABG Oxygen Saturation 97.3 % (95-100); ABG PCO2 29.3 MM HG (35-48); ABG PH 7.526 (7.35-7.45); ABG PO2 86.6 MM HG (80-95); ABG TCO2 21.9 MMOL/L (23-27); Allen Test Positive; Pt O2 Delivery Device Ventilator
[2018-02-16] MEDS: PROPOFOL 1,000 MG/100 ML BOTTLE IV SCH (06:03)
[2018-02-16 06:37] LABS: Hypochromasia 1+; Lymphocytes 4 % (20-55); Nucleated Red Blood Cells 1 (0-5); Ovalocytes Slight; Platelet Estimate Adequate; Segmented Neutrophils 91 % (50-85); Total Cells Counted 100
[2018-02-16] MEDS ORDERED: FUROSEMIDE 40 MG/4 ML VIAL IV ONE ×2 (07:46→14:34)
[2018-02-16] MEDS: methylPREDNISolone SOD SUC 40 MG/1 ML VIAL IV SCH ×2 (11:39→16:13)
[2018-02-16] MEDS: ASPIRIN 325 MG TABLET PO SCH (11:40)
[2018-02-16] MEDS: CARVEDILOL 3.125 MG TABLET PO SCH ×2 (11:40→20:28)
[2018-02-16] MEDS: LEVOFLOXACIN INJ 750 MG in PREMIX 1 EACH IV SCH (11:40)
[2018-02-16] MEDS: INSULIN GLARGINE 100 UNIT/ML SUBCUT SCH (11:40)
[2018-02-16] MEDS: amLODIPine 5 MG TABLET PO SCH (11:40)
[2018-02-16] MEDS: PANTOPRAZOLE 40 MG VIAL IV SCH (11:41)
[2018-02-16 13:42] LABS: ABG Base Excess -1.3 MMOL/L (-2.5-2.5); ABG HCO3 26.5 MMOL/L (20-26); ABG PCO2 59.1 MM HG (35-48); ABG PO2 68.4 MM HG (80-95); ABG TCO2 28.3 MMOL/L (23-27)
[2018-02-16] MEDS: MORPHINE 4 MG/1 ML VIAL IM PRN ×2 (14:40→20:28)
[2018-02-16] MEDS: ENOXAPARIN 30 MG/0.3 ML SYRINGE SUBCUT SCH (15:19)
[2018-02-16] MEDS ORDERED: cloNIDine 0.1 MG TABLET PO PRN (16:32)
[2018-02-16] MEDS: DEXTROSE 50% 25 GM/50 ML SYRINGE IV PRN (19:43)
[2018-02-16] MEDS ORDERED: DEXTROSE 50% 25 GM/50 ML SYRINGE IV ONE (19:43)
[2018-02-16] MEDS: LISINOPRIL 20 MG TABLET PO SCH (20:28)
[2018-02-16] MEDS: CHOLECALCIFEROL 1,000 UNIT TABLET PO SCH (20:28)
[2018-02-16] MEDS: MULTIVITAMIN LIQUID (CENTRUM) 60 ML BOTTLE PO SCH (20:35)
[2018-02-17] MEDS: ALBUTEROL/IPRATROPIUM 3 ML NEB RESP TX SCH ×4 (00:13→19:23)
[2018-02-17] MEDS: DEXTROSE 50% 25 GM/50 ML SYRINGE IV PRN ×2 (00:15→16:39)
[2018-02-17] MEDS: NITROGLYCERIN 2% OINT 1 INCH/GM PACK TOP SCH ×4 (00:17→18:03)
[2018-02-17] MEDS: methylPREDNISolone SOD SUC 40 MG/1 ML VIAL IV SCH ×3 (00:17→16:38)
[2018-02-17] MEDS: INSULIN REGULAR 100 UNIT/ML SUBCUT SCH ×5 (00:17→16:45)
[2018-02-17] MEDS: PIPERACILLIN/TAZOBACTAM 3,375 MG in SODIUM CHLORIDE 0.9% 100 ML IV SCH ×2 (01:45→14:02)
[2018-02-17 03:18] LABS: Basophils % 0.2 % (0.0-0.8); Hematocrit 31.8 VOL% (35.7-47.0); Hemoglobin 10.3 GM/DL (12.0-16.0); Immature Granulocytes % 2.2 %; Immature Granulocytes Absolute 0.37 #; Lymphocytes # 0.4 10*3/uL (1.4-4.0); Lymphocytes % 2.4 % (21.3-54.2); Mean Corpuscular HGB Conc 32.4 GM/DL (32-36); Mean Corpuscular Hemoglobin 29 PG (27-34); Mean Corpuscular Volume 90.3 FL (87-102); Mean Platelet Volume 11.1 FL (9.6-12.0); Monocytes # 1.1 10*3/uL (0.11-0.8); Monocytes % 6.6 % (1.7-12.7); NRBC # 0.15 10*3/uL; Neutrophils # 14.9 10*3/uL (1.4-7.4); Neutrophils % 88.6 % (38.7-73.9); Platelet Count 256 T/CUMM (130-400); Red Blood Count 3.52 MC/CUMM (3.8-5.5); Red Cell Distribution Width 13.7 % (9.3-17.3); White Blood Count 16.8 T/CUMM (4-12)
[2018-02-17] MEDS: MORPHINE 4 MG/1 ML VIAL IM PRN ×2 (03:23→09:22)
[2018-02-17 03:51] LABS: Calcium 8.4 MG/DL (8.5-10.1); Osmolality,Calculated 305.5 MOS/KG (273-304); Potassium 3.6 MMOL/L (3.5-5.1)
[2018-02-17 03:56] LABS: Lymphocytes 4 % (20-55); Platelet Estimate Normal; Polychromasia Few; Segmented Neutrophils 90 % (50-85); Total Cells Counted 100
[2018-02-17] MEDS: CARVEDILOL 3.125 MG TABLET PO SCH (08:55)
[2018-02-17] MEDS: amLODIPine 5 MG TABLET PO SCH (08:55)
[2018-02-17] MEDS: ASPIRIN 325 MG TABLET PO SCH (08:55)
[2018-02-17] MEDS: FUROSEMIDE 40 MG TABLET PO SCH (08:55)
[2018-02-17] MEDS: INSULIN GLARGINE 100 UNIT/ML SUBCUT SCH (08:58)
[2018-02-17] MEDS: PANTOPRAZOLE 40 MG VIAL IV SCH (09:02)
[2018-02-17] MEDS ORDERED: MORPHINE 4 MG/1 ML VIAL IV PRN (09:56)
[2018-02-17] MEDS: ENOXAPARIN 30 MG/0.3 ML SYRINGE SUBCUT SCH (12:29)
[2018-02-18] MEDS: ALBUTEROL/IPRATROPIUM 3 ML NEB RESP TX SCH ×4 (00:51→19:38)
[2018-02-18] MEDS: methylPREDNISolone SOD SUC 40 MG/1 ML VIAL IV SCH ×2 (01:30→09:44)
[2018-02-18] MEDS: INSULIN REGULAR 100 UNIT/ML SUBCUT SCH ×7 (01:30→22:33)
[2018-02-18] MEDS: PIPERACILLIN/TAZOBACTAM 3,375 MG in SODIUM CHLORIDE 0.9% 100 ML IV SCH ×2 (01:31→13:19)
[2018-02-18] MEDS: LISINOPRIL 20 MG TABLET PO SCH (01:39)
[2018-02-18] MEDS: MULTIVITAMIN LIQUID (CENTRUM) 60 ML BOTTLE PO SCH ×2 (01:39→20:39)
[2018-02-18] MEDS: CARVEDILOL 3.125 MG TABLET PO SCH ×3 (01:39→20:39)
[2018-02-18] MEDS: CHOLECALCIFEROL 1,000 UNIT TABLET PO SCH ×2 (01:40→20:39)
[2018-02-18] MEDS: NITROGLYCERIN 2% OINT 1 INCH/GM PACK TOP SCH ×4 (01:46→19:21)
[2018-02-18] MEDS ORDERED: DEXTROSE 50% 25 GM/50 ML VIAL IV PRN (04:30)
[2018-02-18 06:00] LABS: Calcium 8.4 MG/DL (8.5-10.1); Osmolality,Calculated 304.5 MOS/KG (273-304)
[2018-02-18] MEDS: HALOPERIDOL 5 MG/ML AMP IV PRN (09:38)
[2018-02-18] MEDS: amLODIPine 5 MG TABLET PO SCH (09:42)
[2018-02-18] MEDS: ASPIRIN 325 MG TABLET PO SCH (09:43)
[2018-02-18] MEDS: FUROSEMIDE 40 MG TABLET PO SCH (09:43)
[2018-02-18] MEDS: INSULIN GLARGINE 100 UNIT/ML SUBCUT SCH (09:44)
[2018-02-18] MEDS: LEVOFLOXACIN INJ 750 MG in PREMIX 1 EACH IV SCH (10:31)
[2018-02-18] MEDS: PANTOPRAZOLE 40 MG VIAL IV SCH (10:31)
[2018-02-18] MEDS: ENOXAPARIN 30 MG/0.3 ML SYRINGE SUBCUT SCH (13:18)
[2018-02-18 20:03] LABS: Apearance,Urine Slightly Hazy (Clear); Bacteria,Urine Occasional /HPF (Few); Bilirubin,Urine Negative (Negative); Blood, Urine Small mg/dL (Negative); Calcium Oxalate Crystals,Urine Occasional /HPF (Few); Glucose,Urine (UA) Negative (Negative); Ketones,Urine Negative (Negative); Mucus,Urine Occasional /LPF (Occasional); Nitrite,Urine Negative (Negative); Protein,Urine Negative; RBC,Urine 11 /HPF (0-4); Squamous Epithelial Cell,Urine Occasional /HPF (0-10); Urine Color Yellow (Yellow); Urine Specific Gravity 1.012 (1.001-1.035); Urine Urobilinogen < 2.0 EU/DL (0.2-1.0); WBC,Urine 5 /HPF (0-6)
[2018-02-19] MEDS: NITROGLYCERIN 2% OINT 1 INCH/GM PACK TOP SCH ×5 (00:27→17:32)
[2018-02-19] MEDS: ALBUTEROL/IPRATROPIUM 3 ML NEB RESP TX SCH ×4 (00:27→20:12)
[2018-02-19] MEDS: INSULIN REGULAR 100 UNIT/ML SUBCUT SCH ×6 (01:18→22:02)
[2018-02-19 05:02] LABS: Eosinophils % 0.2 % (0.00-10.9); Hematocrit 24.8 VOL% (35.7-47.0); Hemoglobin 7.8 GM/DL (12.0-16.0); Immature Granulocytes Absolute 0.21 #; Lymphocytes # 0.9 10*3/uL (1.4-4.0); Lymphocytes % 8.5 % (21.3-54.2); Mean Corpuscular HGB Conc 31.5 GM/DL (32-36); Mean Corpuscular Hemoglobin 29 PG (27-34); Mean Corpuscular Volume 90.5 FL (87-102); Mean Platelet Volume 11.4 FL (9.6-12.0); Monocytes # 0.8 10*3/uL (0.11-0.8); Monocytes % 7.7 % (1.7-12.7); NRBC # 0.03 10*3/uL; Neutrophils # 8.4 10*3/uL (1.4-7.4); Neutrophils % 81.6 % (38.7-73.9); Platelet Count 214 T/CUMM (130-400); Red Blood Count 2.74 MC/CUMM (3.8-5.5); Red Cell Distribution Width 14.3 % (9.3-17.3); White Blood Count 10.3 T/CUMM (4-12)
[2018-02-19 05:27] LABS: Calcium 7.9 MG/DL (8.5-10.1); Osmolality,Calculated 317.1 MOS/KG (273-304); Potassium 3.9 MMOL/L (3.5-5.1)
[2018-02-19 07:27] LABS: Hematocrit 24.8 VOL% (35.7-47.0); Hemoglobin 7.9 GM/DL (12.0-16.0)
[2018-02-19] MEDS: INSULIN GLARGINE 100 UNIT/ML SUBCUT SCH (10:06)
[2018-02-19] MEDS: ASPIRIN 325 MG TABLET PO SCH (10:07)
[2018-02-19] MEDS: FUROSEMIDE 40 MG TABLET PO SCH (10:07)
[2018-02-19] MEDS: CARVEDILOL 3.125 MG TABLET PO SCH ×2 (10:07→22:00)
[2018-02-19] MEDS: amLODIPine 5 MG TABLET PO SCH (10:07)
[2018-02-19] MEDS: PANTOPRAZOLE 40 MG VIAL IV SCH (10:08)
[2018-02-19] MEDS: methylPREDNISolone SOD SUC 40 MG/1 ML VIAL IV SCH (10:10)
[2018-02-19] MEDS: ENOXAPARIN 30 MG/0.3 ML SYRINGE SUBCUT SCH (13:03)
[2018-02-19] MEDS ORDERED: FUROSEMIDE 40 MG/4 ML VIAL IV ONE (17:19)
[2018-02-19] MEDS: HALOPERIDOL 5 MG/ML AMP IV PRN (21:59)
[2018-02-19] MEDS: CHOLECALCIFEROL 1,000 UNIT TABLET PO SCH (22:00)
[2018-02-19] MEDS: MULTIVITAMIN LIQUID (CENTRUM) 60 ML BOTTLE PO SCH (22:02)
[2018-02-20] MEDS: ALBUTEROL/IPRATROPIUM 3 ML NEB RESP TX SCH ×4 (00:45→19:30)
[2018-02-20] MEDS: NITROGLYCERIN 2% OINT 1 INCH/GM PACK TOP SCH ×3 (00:59→11:02)
[2018-02-20] MEDS: INSULIN REGULAR 100 UNIT/ML SUBCUT SCH ×5 (00:59→15:52)
[2018-02-20 06:26] LABS: Calcium 8.2 MG/DL (8.5-10.1); Osmolality,Calculated 320.7 MOS/KG (273-304); Potassium 3.9 MMOL/L (3.5-5.1)
[2018-02-20] MEDS: FUROSEMIDE 40 MG TABLET PO SCH (08:02)
[2018-02-20] MEDS: CARVEDILOL 3.125 MG TABLET PO SCH ×2 (08:02→22:41)
[2018-02-20] MEDS: ASPIRIN 325 MG TABLET PO SCH (08:02)
[2018-02-20] MEDS: INSULIN GLARGINE 100 UNIT/ML SUBCUT SCH (08:02)
[2018-02-20] MEDS: amLODIPine 5 MG TABLET PO SCH (08:02)
[2018-02-20] MEDS: LEVOFLOXACIN INJ 750 MG in PREMIX 1 EACH IV SCH (09:23)
[2018-02-20] MEDS: PANTOPRAZOLE 40 MG VIAL IV SCH (09:24)
[2018-02-20] MEDS: methylPREDNISolone SOD SUC 40 MG/1 ML VIAL IV SCH (09:24)
[2018-02-20 11:34] LABS: Basophils % 0.1 % (0.0-0.8); Eosinophils % 0.3 % (0.00-10.9); Hemoglobin 7.9 GM/DL (12.0-16.0); Immature Granulocytes % 2.2 %; Immature Granulocytes Absolute 0.28 #; Lymphocytes # 0.6 10*3/uL (1.4-4.0); Lymphocytes % 4.3 % (21.3-54.2); Mean Corpuscular HGB Conc 31.6 GM/DL (32-36); Mean Corpuscular Hemoglobin 29 PG (27-34); Mean Corpuscular Volume 92.3 FL (87-102); Mean Platelet Volume 11.3 FL (9.6-12.0); Monocytes # 0.7 10*3/uL (0.11-0.8); Monocytes % 5.5 % (1.7-12.7); NRBC # 0.02 10*3/uL; Neutrophils # 11.1 10*3/uL (1.4-7.4); Neutrophils % 87.6 % (38.7-73.9); Platelet Count 196 T/CUMM (130-400); Red Blood Count 2.71 MC/CUMM (3.8-5.5); Red Cell Distribution Width 14.7 % (9.3-17.3); White Blood Count 12.7 T/CUMM (4-12)
[2018-02-20 12:02] LABS: Band Neutrophils 2 % (0-10); Hypochromasia 1+; Lymphocytes 1 % (20-55); Platelet Estimate Adequate; Segmented Neutrophils 94 % (50-85); Total Cells Counted 100
[2018-02-20] MEDS: HALOPERIDOL 5 MG/ML AMP IV PRN (12:30)
[2018-02-20] MEDS: ENOXAPARIN 30 MG/0.3 ML SYRINGE SUBCUT SCH (12:32)
[2018-02-20] MEDS: DEXTROSE 5% 1,000 ML IV SCH (14:32)
[2018-02-20] MEDS: CHOLECALCIFEROL 1,000 UNIT TABLET PO SCH (22:40)
[2018-02-20] MEDS: MULTIVITAMIN LIQUID (CENTRUM) 60 ML BOTTLE PO SCH (22:41)
[2018-02-21] MEDS: INSULIN REGULAR 100 UNIT/ML SUBCUT SCH ×7 (00:02→21:02)
[2018-02-21] MEDS: HALOPERIDOL 5 MG/ML AMP IV PRN ×2 (00:41→08:09)
[2018-02-21 04:01] LABS: Basophils % 0.1 % (0.0-0.8); Eosinophils # 0.2 10*3/uL (0.0-0.87); Eosinophils % 1.3 % (0.00-10.9); Hemoglobin 8.2 GM/DL (12.0-16.0); Immature Granulocytes Absolute 0.24 #; Lymphocytes # 0.9 10*3/uL (1.4-4.0); Lymphocytes % 7.8 % (21.3-54.2); Mean Corpuscular HGB Conc 31.5 GM/DL (32-36); Mean Corpuscular Hemoglobin 29 PG (27-34); Mean Corpuscular Volume 91.2 FL (87-102); Mean Platelet Volume 10.9 FL (9.6-12.0); Monocytes # 0.7 10*3/uL (0.11-0.8); Monocytes % 5.4 % (1.7-12.7); NRBC # 0.08 10*3/uL; Neutrophils % 83.4 % (38.7-73.9); Platelet Count 188 T/CUMM (130-400); Red Blood Count 2.85 MC/CUMM (3.8-5.5); Red Cell Distribution Width 14.5 % (9.3-17.3)
[2018-02-21 04:34] LABS: Osmolality,Calculated 309.3 MOS/KG (273-304); Potassium 3.6 MMOL/L (3.5-5.1)
[2018-02-21] MEDS: ALBUTEROL/IPRATROPIUM 3 ML NEB RESP TX SCH ×4 (07:20→19:18)
[2018-02-21] MEDS: ASPIRIN 325 MG TABLET PO SCH (08:06)
[2018-02-21] MEDS: LEVOFLOXACIN INJ 750 MG in PREMIX 1 EACH IV SCH (08:06)
[2018-02-21] MEDS: CARVEDILOL 3.125 MG TABLET PO SCH ×2 (08:06→22:35)
[2018-02-21] MEDS: amLODIPine 5 MG TABLET PO SCH (08:06)
[2018-02-21] MEDS: PANTOPRAZOLE 40 MG VIAL IV SCH (08:09)
[2018-02-21] MEDS: methylPREDNISolone SOD SUC 40 MG/1 ML VIAL IV SCH (08:09)
[2018-02-21] MEDS: DEXTROSE 5% 1,000 ML IV SCH (08:11)
[2018-02-21] MEDS: INSULIN GLARGINE 100 UNIT/ML SUBCUT SCH (08:11)
[2018-02-21] MEDS ORDERED: POTASSIUM CHLORIDE 20 MEQ/15 ML UDCUP PER TUBE ONE (09:19)
[2018-02-21] MEDS: predniSONE 10 MG TABLET PO SCH (09:23)
[2018-02-21] MEDS ORDERED: TUBERCULIN SKIN TEST 0.1 ML SYRINGE INTRADERM ONE (09:26)
[2018-02-21] MEDS: ENOXAPARIN 30 MG/0.3 ML SYRINGE SUBCUT SCH (13:35)
[2018-02-21] MEDS: MULTIVITAMIN LIQUID (CENTRUM) 60 ML BOTTLE PO SCH (22:35)
[2018-02-21] MEDS: CHOLECALCIFEROL 1,000 UNIT TABLET PO SCH (22:35)
[2018-02-22] MEDS: INSULIN REGULAR 100 UNIT/ML SUBCUT SCH ×6 (01:43→20:32)
[2018-02-22] MEDS: ALBUTEROL/IPRATROPIUM 3 ML NEB RESP TX SCH ×4 (02:30→20:03)
[2018-02-22] MEDS: DEXTROSE 5% 1,000 ML IV SCH (07:12)
[2018-02-22] MEDS: INSULIN GLARGINE 100 UNIT/ML SUBCUT SCH (10:04)
[2018-02-22] MEDS: CARVEDILOL 3.125 MG TABLET PO SCH ×2 (10:04→21:02)
[2018-02-22] MEDS: amLODIPine 5 MG TABLET PO SCH (10:04)
[2018-02-22] MEDS: predniSONE 10 MG TABLET PO SCH (10:05)
[2018-02-22] MEDS: ASPIRIN 325 MG TABLET PO SCH (10:05)
[2018-02-22] MEDS: ENOXAPARIN 30 MG/0.3 ML SYRINGE SUBCUT SCH (14:20)
[2018-02-22] MEDS: ACETAMINOPHEN 325 MG TABLET PO PRN (21:02)
[2018-02-22] MEDS: CHOLECALCIFEROL 1,000 UNIT TABLET PO SCH (21:02)
[2018-02-22] MEDS: MULTIVITAMIN LIQUID (CENTRUM) 60 ML BOTTLE PO SCH (21:03)
[2018-02-23] MEDS: ALBUTEROL/IPRATROPIUM 3 ML NEB RESP TX SCH ×2 (00:50→07:48)
[2018-02-23] MEDS: DEXTROSE 5% 1,000 ML IV SCH (02:26)
[2018-02-23] MEDS: INSULIN REGULAR 100 UNIT/ML SUBCUT SCH ×3 (02:27→09:14)
[2018-02-23] MEDS: amLODIPine 5 MG TABLET PO SCH (09:11)
[2018-02-23] MEDS: ENOXAPARIN 30 MG/0.3 ML SYRINGE SUBCUT SCH (09:11)
[2018-02-23] MEDS: predniSONE 10 MG TABLET PO SCH (09:11)
[2018-02-23] MEDS: CARVEDILOL 3.125 MG TABLET PO SCH (09:11)
[2018-02-23] MEDS: ASPIRIN 325 MG TABLET PO SCH (09:14)
[2018-02-23] MEDS: INSULIN GLARGINE 100 UNIT/ML SUBCUT SCH (09:14)
[2018-02-23 12:07] VITALS: BP 136/77
[2018-02-23] MEDS ORDERED: FUROSEMIDE 40 MG TABLET PO SCH (12:30)
== END 2018-02-23 13:30 | disposition swing bed (61) | DRG 207 ==
LOC: N.ED 13:45 → N.EDINP 13:45 → SUATTDRO 16:20 → N.TELEN 17:46 → SUATTDRO 02-06 09:54 → N.4E 02-09 15:30 → N.ICU 02-11 08:46 → N.5E 02-17 19:55
PROVIDERS: ADMIT Internal Medicine Cardiovascular Disease; ATTEND Emergency Medicine

== ENCOUNTER 2018-02-24 12:52 | Inpatient (IN) ==
[2018-02-24] MEDS ORDERED: NALOXONE 0.4 MG/ML VIAL IV ONE (15:51)
[2018-02-24] MEDS ORDERED: NALOXONE 0.4 MG/ML VIAL ONE (15:51)
[2018-02-24] MEDS ORDERED: ONDANSETRON 4 MG/2 ML VIAL IV PRN (16:05)
[2018-02-24] MEDS ORDERED: ENOXAPARIN 30 MG/0.3 ML SYRINGE SUBCUT SCH (16:30)
[2018-02-24] MEDS ORDERED: LABETALOL 20 MG/4 ML SYRINGE IV PRN (16:37)
[2018-02-24] MEDS ORDERED: FUROSEMIDE 40 MG/4 ML VIAL IV ONE (16:39)
[2018-02-24] MEDS: PIPERACILLIN/TAZOBACTAM 3,375 MG in SODIUM CHLORIDE 0.9% 100 ML IV SCH (17:31)
[2018-02-24 18:59] LABS: Apearance,Urine CLEAR (Clear); Bilirubin,Urine Negative (Negative); Blood, Urine Negative (Negative); Glucose,Urine (UA) Negative (Negative); Hyaline Casts,Urine 12 /LPF (0-3); Ketones,Urine Negative (Negative); Nitrite,Urine Negative (Negative); Protein,Urine Negative; RBC,Urine <1 /HPF (0-4); Squamous Epithelial Cell,Urine Occasional /HPF (0-10); Urine Color Straw (Yellow); Urine Specific Gravity 1.008 (1.001-1.035); Urine Urobilinogen < 2.0 EU/DL (0.2-1.0); WBC,Urine 2 /HPF (0-6)
[2018-02-24] MEDS: ALBUTEROL/IPRATROPIUM 3 ML NEB RESP TX SCH (19:28)
[2018-02-24 19:57] LABS: Basophils % 0.1 % (0.0-0.8); Eosinophils % 0.2 % (0.00-10.9); Hematocrit 27.8 VOL% (35.7-47.0); Hemoglobin 8.8 GM/DL (12.0-16.0); Immature Granulocytes % 0.9 %; Immature Granulocytes Absolute 0.11 #; Lymphocytes # 0.3 10*3/uL (1.4-4.0); Lymphocytes % 2.2 % (21.3-54.2); Mean Corpuscular HGB Conc 31.7 GM/DL (32-36); Mean Corpuscular Hemoglobin 29 PG (27-34); Mean Platelet Volume 11.1 FL (9.6-12.0); Monocytes # 0.2 10*3/uL (0.11-0.8); Monocytes % 1.9 % (1.7-12.7); NRBC # 0.02 10*3/uL; Neutrophils # 12.2 10*3/uL (1.4-7.4); Neutrophils % 94.7 % (38.7-73.9); Platelet Count 121 T/CUMM (130-400); Red Blood Count 2.99 MC/CUMM (3.8-5.5); Red Cell Distribution Width 17.3 % (9.3-17.3); White Blood Count 12.9 T/CUMM (4-12)
[2018-02-24 20:10] LABS: Calcium 8.2 MG/DL (8.5-10.1); Osmolality,Calculated 304.7 MOS/KG (273-304); Potassium 3.6 MMOL/L (3.5-5.1)
[2018-02-24 20:53] LABS: Eosinophils 1 % (0-10); Lymphocytes 1 % (20-55); Segmented Neutrophils 96 % (50-85); Total Cells Counted 100
[2018-02-24 20:54] LABS: Anisocytosis Slight; Microcytosis Slight; Polychromasia Slight; Target Cells Slight
[2018-02-24 20:55] LABS: Spherocytes Slight
[2018-02-24 20:56] LABS: Platelet Estimate Adequate
[2018-02-25] MEDS: ALBUTEROL/IPRATROPIUM 3 ML NEB RESP TX SCH ×4 (00:30→20:40)
[2018-02-25] MEDS: PIPERACILLIN/TAZOBACTAM 3,375 MG in SODIUM CHLORIDE 0.9% 100 ML IV SCH ×3 (00:40→15:58)
[2018-02-25 07:02] LABS: Basophils % 0.1 % (0.0-0.8); Eosinophils % 0.2 % (0.00-10.9); Hematocrit 28.5 VOL% (35.7-47.0); Hemoglobin 8.8 GM/DL (12.0-16.0); Immature Granulocytes % 0.9 %; Immature Granulocytes Absolute 0.13 #; Lymphocytes # 0.2 10*3/uL (1.4-4.0); Lymphocytes % 1.4 % (21.3-54.2); Mean Corpuscular HGB Conc 30.9 GM/DL (32-36); Mean Corpuscular Hemoglobin 29 PG (27-34); Mean Corpuscular Volume 93.4 FL (87-102); Mean Platelet Volume 10.7 FL (9.6-12.0); Monocytes # 0.3 10*3/uL (0.11-0.8); Neutrophils # 14.2 10*3/uL (1.4-7.4); Neutrophils % 95.4 % (38.7-73.9); Platelet Count 109 T/CUMM (130-400); Red Blood Count 3.05 MC/CUMM (3.8-5.5); Red Cell Distribution Width 17.6 % (9.3-17.3); White Blood Count 14.9 T/CUMM (4-12)
[2018-02-25 07:21] LABS: Calcium 8.3 MG/DL (8.5-10.1); Osmolality,Calculated 307.3 MOS/KG (273-304); Potassium 3.6 MMOL/L (3.5-5.1)
[2018-02-25] MEDS ORDERED: DEXTROSE 50% 25 GM/50 ML SYRINGE IV ONE (07:24)
[2018-02-25 07:29] LABS: Anisocytosis 2+; Band Neutrophils 8 % (0-10); Lymphocytes 1 % (20-55); Macrocytosis 2+; Platelet Estimate Adequate; Polychromasia Slight; Segmented Neutrophils 90 % (50-85); Total Cells Counted 100
[2018-02-25] MEDS: DEXTROSE 5% 1,000 ML IV SCH (08:10)
[2018-02-25] MEDS: ENOXAPARIN 30 MG/0.3 ML SYRINGE SUBCUT SCH (08:20)
[2018-02-25] MEDS ORDERED: DEXTROSE 50% 25 GM/50 ML SYRINGE IV PRN (08:37)
[2018-02-25] MEDS ORDERED: GLUCAGON 1 MG VIAL IM PRN (08:37)
[2018-02-25] MEDS ORDERED: PANTOPRAZOLE 40 MG TABLET PO SCH (09:00)
[2018-02-25] MEDS: FUROSEMIDE 40 MG/4 ML VIAL IV SCH ×2 (10:50→11:01)
[2018-02-25] MEDS: ASPIRIN EC 81 MG TABLET PO SCH (10:50)
[2018-02-25] MEDS: PANTOPRAZOLE 40 MG VIAL IV SCH ×2 (10:51→10:58)
[2018-02-25] MEDS: INSULIN REGULAR 100 UNIT/ML SUBCUT SCH ×3 (12:07→21:14)
[2018-02-25] MEDS: NYSTATIN 500,000 UNIT/5 ML UDCUP SWISH/SWAL SCH ×3 (13:23→21:19)
[2018-02-26] MEDS: PIPERACILLIN/TAZOBACTAM 3,375 MG in SODIUM CHLORIDE 0.9% 100 ML IV SCH ×3 (01:25→17:53)
[2018-02-26] MEDS: ALBUTEROL/IPRATROPIUM 3 ML NEB RESP TX SCH ×4 (02:06→19:15)
[2018-02-26] MEDS: ENOXAPARIN 30 MG/0.3 ML SYRINGE SUBCUT SCH (08:34)
[2018-02-26] MEDS: PANTOPRAZOLE 40 MG VIAL IV SCH (08:35)
[2018-02-26] MEDS: NYSTATIN 500,000 UNIT/5 ML UDCUP SWISH/SWAL SCH ×3 (08:35→17:53)
[2018-02-26] MEDS: ASPIRIN EC 81 MG TABLET PO SCH (08:35)
[2018-02-26] MEDS: FUROSEMIDE 40 MG/4 ML VIAL IV SCH (08:36)
[2018-02-26] MEDS: DEXTROSE 5% 1,000 ML IV SCH (08:50)
[2018-02-26] MEDS: INSULIN REGULAR 100 UNIT/ML SUBCUT SCH ×4 (08:50→20:28)
[2018-02-26] MEDS ORDERED: PHENOL 1.4% THROAT SPRAY 177 ML BOTTLE PO PRN (11:48)
[2018-02-26] MEDS ORDERED: FUROSEMIDE 20 MG/2 ML VIAL IV ONE (11:48)
[2018-02-26] MEDS ORDERED: LOPERAMIDE 2 MG CAPSULE PO PRN (15:27)
[2018-02-26] MEDS ORDERED: ALUMINUM/MAGNES/SIMETH MAX STR 30 ML UDCUP PO PRN (15:27)
[2018-02-27] MEDS: metroNIDAZOLE 500 MG TABLET PO SCH ×3 (00:02→20:43)
[2018-02-27] MEDS: NYSTATIN 500,000 UNIT/5 ML UDCUP SWISH/SWAL SCH ×5 (00:03→22:47)
[2018-02-27] MEDS: ALBUTEROL/IPRATROPIUM 3 ML NEB RESP TX SCH ×4 (00:24→20:32)
[2018-02-27] MEDS: PIPERACILLIN/TAZOBACTAM 3,375 MG in SODIUM CHLORIDE 0.9% 100 ML IV SCH ×3 (00:56→15:58)
[2018-02-27] MEDS: DEXTROSE 5% 1,000 ML IV SCH (01:03)
[2018-02-27 06:24] LABS: Basophils % 0.2 % (0.0-0.8); Eosinophils # 0.1 10*3/uL (0.0-0.87); Eosinophils % 2.2 % (0.00-10.9); Hematocrit 26.3 VOL% (35.7-47.0); Hemoglobin 8.1 GM/DL (12.0-16.0); Immature Granulocytes % 0.8 %; Immature Granulocytes Absolute 0.05 #; Lymphocytes # 0.4 10*3/uL (1.4-4.0); Lymphocytes % 6.9 % (21.3-54.2); Mean Corpuscular HGB Conc 30.8 GM/DL (32-36); Mean Corpuscular Hemoglobin 29 PG (27-34); Mean Corpuscular Volume 93.6 FL (87-102); Mean Platelet Volume 11.8 FL (9.6-12.0); Monocytes # 0.4 10*3/uL (0.11-0.8); Monocytes % 6.5 % (1.7-12.7); NRBC # 0.02 10*3/uL; Neutrophils % 83.4 % (38.7-73.9); Red Blood Count 2.81 MC/CUMM (3.8-5.5); Red Cell Distribution Width 17.4 % (9.3-17.3)
[2018-02-27 06:53] LABS: Calcium 8.6 MG/DL (8.5-10.1); Osmolality,Calculated 303.6 MOS/KG (273-304); Potassium 3.1 MMOL/L (3.5-5.1)
[2018-02-27 06:56] LABS: Platelet Count 68 T/CUMM (130-400)
[2018-02-27 07:07] LABS: Hypochromasia 1+; Ovalocytes Slight; Platelet Estimate Decreased
[2018-02-27 07:09] LABS: Microcytosis Slight
[2018-02-27] MEDS: ASPIRIN EC 81 MG TABLET PO SCH (08:53)
[2018-02-27] MEDS: ENOXAPARIN 30 MG/0.3 ML SYRINGE SUBCUT SCH (08:58)
[2018-02-27] MEDS: FUROSEMIDE 40 MG/4 ML VIAL IV SCH (09:02)
[2018-02-27] MEDS: PANTOPRAZOLE 40 MG VIAL IV SCH (09:03)
[2018-02-27] MEDS: INSULIN REGULAR 100 UNIT/ML SUBCUT SCH ×4 (09:03→20:48)
[2018-02-27] MEDS ORDERED: MAGNESIUM SULF RIDER 2 GM in PREMIX 1 EACH IV PRN (16:20)
[2018-02-27] MEDS ORDERED: MAGNESIUM SULF RIDER 4 GM in PREMIX 1 EACH IV PRN (16:20)
[2018-02-27] MEDS: POTASSIUM CHLORIDE RIDER 10 MEQ in PREMIX 1 EACH IV PRN ×3 (20:43→23:06)
[2018-02-28] MEDS: POTASSIUM CHLORIDE RIDER 10 MEQ in PREMIX 1 EACH IV PRN (00:10)
[2018-02-28] MEDS: ALBUTEROL/IPRATROPIUM 3 ML NEB RESP TX SCH ×4 (00:36→20:10)
[2018-02-28] MEDS: PIPERACILLIN/TAZOBACTAM 3,375 MG in SODIUM CHLORIDE 0.9% 100 ML IV SCH ×3 (01:20→16:15)
[2018-02-28] MEDS: metroNIDAZOLE 500 MG TABLET PO SCH (09:03)
[2018-02-28] MEDS: PANTOPRAZOLE 40 MG TABLET PO SCH ×2 (09:03→20:29)
[2018-02-28] MEDS: NYSTATIN 500,000 UNIT/5 ML UDCUP SWISH/SWAL SCH ×3 (09:09→18:05)
[2018-02-28] MEDS: ENOXAPARIN 30 MG/0.3 ML SYRINGE SUBCUT SCH (09:11)
[2018-02-28] MEDS: INSULIN REGULAR 100 UNIT/ML SUBCUT SCH ×4 (09:11→20:25)
[2018-02-28] MEDS: FUROSEMIDE 40 MG/4 ML VIAL IV SCH (16:07)
[2018-02-28] MEDS: CARVEDILOL 6.25 MG TABLET PO SCH ×2 (16:10→20:29)
[2018-03-01] MEDS: NYSTATIN 500,000 UNIT/5 ML UDCUP SWISH/SWAL SCH ×5 (01:15→21:56)
[2018-03-01] MEDS: ALBUTEROL/IPRATROPIUM 3 ML NEB RESP TX SCH ×4 (01:35→20:13)
[2018-03-01] MEDS: PIPERACILLIN/TAZOBACTAM 3,375 MG in SODIUM CHLORIDE 0.9% 100 ML IV SCH ×3 (02:05→23:50)
[2018-03-01 06:22] LABS: Basophils % 0.1 % (0.0-0.8); Eosinophils % 0.4 % (0.00-10.9); Hematocrit 26.3 VOL% (35.7-47.0); Immature Granulocytes Absolute 0.08 #; Lymphocytes # 0.4 10*3/uL (1.4-4.0); Lymphocytes % 4.9 % (21.3-54.2); Mean Corpuscular HGB Conc 30.4 GM/DL (32-36); Mean Corpuscular Hemoglobin 28 PG (27-34); Mean Corpuscular Volume 93.3 FL (87-102); Mean Platelet Volume 13.1 FL (9.6-12.0); Monocytes # 0.4 10*3/uL (0.11-0.8); Monocytes % 5.3 % (1.7-12.7); NRBC # 0.06 10*3/uL; Neutrophils # 7.2 10*3/uL (1.4-7.4); Neutrophils % 88.3 % (38.7-73.9); Platelet Count 76 T/CUMM (130-400); Red Blood Count 2.82 MC/CUMM (3.8-5.5); Red Cell Distribution Width 17.9 % (9.3-17.3); White Blood Count 8.1 T/CUMM (4-12)
[2018-03-01 06:27] LABS: Calcium 8.5 MG/DL (8.5-10.1); Potassium 3.8 MMOL/L (3.5-5.1)
[2018-03-01 07:09] LABS: Anisocytosis 1+; Band Neutrophils 15 % (0-10); Lymphocytes 5 % (20-55); Macrocytosis 1+; Nucleated Red Blood Cells 2 (0-5); Platelet Estimate Decreased; Polychromasia Slight; Segmented Neutrophils 77 % (50-85); Target Cells Few; Total Cells Counted 100
[2018-03-01 07:10] LABS: Poikilocytosis Slight
[2018-03-01] MEDS: CARVEDILOL 6.25 MG TABLET PO SCH (09:20)
[2018-03-01] MEDS: PANTOPRAZOLE 40 MG TABLET PO SCH ×2 (09:20→21:55)
[2018-03-01] MEDS: INSULIN REGULAR 100 UNIT/ML SUBCUT SCH ×4 (09:20→21:55)
[2018-03-01] MEDS: FUROSEMIDE 40 MG/4 ML VIAL IV SCH (10:17)
[2018-03-01] MEDS ORDERED: LIDOCAINE 2% 5 ML VIAL ONE (12:00)
[2018-03-01] MEDS ORDERED: ETOMIDATE 20 MG/10 ML VIAL IV ONE (12:00)
[2018-03-01] MEDS ORDERED: PROPOFOL 200 MG/20 ML VIAL IV ONE (12:00)
[2018-03-01] MEDS ORDERED: PHENYLEPHRINE 1 MG/10 ML SYRINGE IV ONE (12:00)
[2018-03-01] MEDS: DEXTROSE 5% 1,000 ML IV SCH (16:12)
[2018-03-01] MEDS: CARVEDILOL 3.125 MG TABLET PO SCH (21:55)
[2018-03-02] MEDS: ALBUTEROL/IPRATROPIUM 3 ML NEB RESP TX SCH ×5 (01:22→19:39)
[2018-03-02 08:01] LABS: Basophils % 0.2 % (0.0-0.8); Eosinophils # 0.1 10*3/uL (0.0-0.87); Eosinophils % 2.2 % (0.00-10.9); Hematocrit 24.7 VOL% (35.7-47.0); Hemoglobin 7.8 GM/DL (12.0-16.0); Immature Granulocytes % 0.9 %; Immature Granulocytes Absolute 0.06 #; Lymphocytes # 0.8 10*3/uL (1.4-4.0); Lymphocytes % 11.8 % (21.3-54.2); Mean Corpuscular HGB Conc 31.6 GM/DL (32-36); Mean Corpuscular Hemoglobin 29 PG (27-34); Mean Corpuscular Volume 92.2 FL (87-102); Mean Platelet Volume 12.8 FL (9.6-12.0); Monocytes # 0.3 10*3/uL (0.11-0.8); Monocytes % 4.5 % (1.7-12.7); Neutrophils # 5.2 10*3/uL (1.4-7.4); Neutrophils % 80.4 % (38.7-73.9); Platelet Count 81 T/CUMM (130-400); Red Blood Count 2.68 MC/CUMM (3.8-5.5); Red Cell Distribution Width 18.2 % (9.3-17.3); White Blood Count 6.4 T/CUMM (4-12)
[2018-03-02 08:18] LABS: Calcium 8.4 MG/DL (8.5-10.1); Osmolality,Calculated 306.1 MOS/KG (273-304); Potassium 3.4 MMOL/L (3.5-5.1)
[2018-03-02 08:25] LABS: Band Neutrophils 1 % (0-10); Eosinophils 4 % (0-10); Hypochromasia 1+; Lymphocytes 11 % (20-55); Platelet Estimate Decreased; Segmented Neutrophils 80 % (50-85); Total Cells Counted 100
[2018-03-02 08:26] LABS: Macrocytosis Slight; Polychromasia Slight
[2018-03-02] MEDS ORDERED: FUROSEMIDE 40 MG/4 ML VIAL IV SCH (09:00)
[2018-03-02] MEDS: NYSTATIN 500,000 UNIT/5 ML UDCUP SWISH/SWAL SCH ×4 (09:07→22:33)
[2018-03-02] MEDS: INSULIN REGULAR 100 UNIT/ML SUBCUT SCH ×6 (09:07→22:32)
[2018-03-02] MEDS: PANTOPRAZOLE 40 MG TABLET PO SCH ×2 (09:09→22:33)
[2018-03-02] MEDS: CARVEDILOL 3.125 MG TABLET PO SCH ×2 (09:09→22:32)
[2018-03-02] MEDS: PIPERACILLIN/TAZOBACTAM 3,375 MG in SODIUM CHLORIDE 0.9% 100 ML IV SCH (09:34)
[2018-03-02] MEDS ORDERED: TUBERCULIN SKIN TEST 0.1 ML SYRINGE INTRADERM ONE (11:56)
[2018-03-02] MEDS ORDERED: PIPERACILLIN/TAZOBACTAM 3,375 MG in SODIUM CHLORIDE 0.9% 100 ML IV SCH (12:00)
[2018-03-02] MEDS ORDERED: FUROSEMIDE 40 MG TABLET PO ONE (13:37)
[2018-03-02] MEDS: AMOXICILLIN/CLAV 500 MG TABLET PO SCH ×2 (15:01→22:32)
[2018-03-03] MEDS: ALBUTEROL/IPRATROPIUM 3 ML NEB RESP TX SCH ×3 (00:35→13:30)
[2018-03-03 04:55] LABS: Basophils % 0.2 % (0.0-0.8); Eosinophils # 0.2 10*3/uL (0.0-0.87); Eosinophils % 2.6 % (0.00-10.9); Hematocrit 27.1 VOL% (35.7-47.0); Hemoglobin 8.4 GM/DL (12.0-16.0); Immature Granulocytes % 0.8 %; Immature Granulocytes Absolute 0.05 #; Lymphocytes % 16.7 % (21.3-54.2); Mean Corpuscular Hemoglobin 28 PG (27-34); Mean Corpuscular Volume 90.9 FL (87-102); Monocytes # 0.4 10*3/uL (0.11-0.8); Monocytes % 6.1 % (1.7-12.7); Neutrophils # 4.5 10*3/uL (1.4-7.4); Neutrophils % 73.6 % (38.7-73.9); Platelet Count 113 T/CUMM (130-400); Red Blood Count 2.98 MC/CUMM (3.8-5.5); Red Cell Distribution Width 18.1 % (9.3-17.3); White Blood Count 6.1 T/CUMM (4-12)
[2018-03-03 05:16] LABS: Calcium 8.4 MG/DL (8.5-10.1); Osmolality,Calculated 305.1 MOS/KG (273-304); Potassium 3.3 MMOL/L (3.5-5.1)
[2018-03-03 05:21] LABS: Hypochromasia 1+; Macrocytosis Slight; Ovalocytes Slight; Platelet Estimate Decreased; Polychromasia Slight
[2018-03-03] MEDS: POTASSIUM CHLORIDE 20 MEQ TABLET PO PRN ×2 (06:13→10:52)
[2018-03-03] MEDS ORDERED: FUROSEMIDE 40 MG TABLET PO SCH (09:00)
[2018-03-03] MEDS ORDERED: LEVOFLOXACIN 500 MG TABLET PO SCH ×2 (10:30→10:32)
[2018-03-03] MEDS: CARVEDILOL 3.125 MG TABLET PO SCH (10:52)
[2018-03-03] MEDS: PANTOPRAZOLE 40 MG TABLET PO SCH (10:52)
[2018-03-03] MEDS: NYSTATIN 500,000 UNIT/5 ML UDCUP SWISH/SWAL SCH ×3 (10:58→18:48)
[2018-03-03] MEDS: INSULIN REGULAR 100 UNIT/ML SUBCUT SCH ×3 (11:00→18:47)
[2018-03-03] MEDS: AMOXICILLIN/CLAV 500 MG TABLET PO SCH (11:01)
[2018-03-03 16:04] VITALS: BP 150/64
== END 2018-03-03 16:15 | DRG 177 ==
LOC: N.TELEN → SUATTDRO 15:18 → OBSVTOIN 15:18 → N.4E 02-27 13:28
PROVIDERS: ADMIT Emergency Medicine; ATTEND Internal Medicine